=== PATIENT | female | born 1990 | race Caucasian/White ===

== ENCOUNTER 2019-12-25 16:53 | Emergency (ER) | payer BC, MEDICAID ==
[~2019-12-25] VITALS: Ht 154.9 cm; Wt 46.5 kg
--- NOTE | 2019-12-25 18:05 | NUR ---
HAZ TECH: PT WALKED BACK FROM LOBBY TO ROOM AT THIS TIME.
[2019-12-25] MEDS ORDERED: ONDANSETRON 2MG/ML, 2ML IVPush ONE (19:00)
[2019-12-25] MEDS ORDERED: SODIUM CHLORIDE 0.9% 1,000ML IVBOLUS ONE (19:00)
[2019-12-25] MEDS ORDERED: MORPHINE SULFATE 4 MG/ML, 1ML IVPush PRN (19:00)
[2019-12-25 19:06] VITALS: BP 103/65
[2019-12-25 19:12] LABS: BASOPHILS # (AUTO) 0.03 x10^3/uL (0-0.1); BASOPHILS % (AUTO) 0 % (0-1); EOSINOPHILS # (AUTO) 0.11 x10^3/uL (0-0.4); EOSINOPHILS % (AUTO) 1 % (1-7); LYMPHOCYTES # (AUTO) 2.46 x10^3/uL (1-3.4); LYMPHOCYTES % (AUTO) 29 % (22-44); MD NO; MEAN CORPUSCULAR HEMOGLOBIN 27.2 pg (27.0-34.8); MEAN CORPUSCULAR HGB CONC 32.4 g/dL (32.4-35.8); MEAN CORPUSCULAR VOLUME 84.1 fL (80-100); MEAN PLATELET VOLUME 7.4 fL (7.4-10.4); MONOCYTES # (AUTO) 0.72 x10^3/uL (0.2-0.8); MONOCYTES % (AUTO) 8 % (2-9); NEUTROPHILS # (AUTO) 5.17 x10^3/uL (1.8-6.8); NEUTROPHILS % (AUTO) 61 % (42-75); PLATELET COUNT 432 x10^3/uL (130-400); RED BLOOD COUNT 4.47 x10^6/uL (3.82-5.3); RED CELL DISTRIBUTION WIDTH 15.7 % (9.6-15.2)
[2019-12-25 19:25] LABS: ANION GAP 6 mmol/L (5-15); CALCIUM 8.9 mg/dL (8.5-10.1); CHLORIDE 107 mmol/L (98-107)
[2019-12-25] MEDS ORDERED: ONDANSETRON 2MG/ML, 2ML ONE (19:38)
[2019-12-25] MEDS ORDERED: MORPHINE SULFATE 4 MG/ML, 1ML ONE (19:39)
--- NOTE | 2019-12-25 19:56 | NUR ---
PT TO IMAGING AT THIS TIME.
[2019-12-25 20:09] LABS: WET PREP WBCS MODERATE (FEW)
[2019-12-25 20:14] LABS: CLUE CELLS PRESENT (NONE SEEN)
[2019-12-25 20:55] LABS: MICROSCOPIC NOT IND
== END 2019-12-25 21:09 | disposition home or self-care (01) ==
LOC: ED 21:06
DX: N76.0 Acute vaginitis (principal); R10.32 Left lower quadrant pain; R11.0 Nausea
CPT/HCPCS: 36415; 76830; 80048; 81003; 82040; 84703; 85025; 87210; 87491; 87591; 87808; 96361; 96374; 96375; 99284; J2270; J2405; J7030

== ENCOUNTER 2019-12-28 10:35 | Emergency (ER) | payer BC, MEDICAID ==
[~2019-12-28] VITALS: Ht 152.4 cm; Wt 45.8 kg
[2019-12-28 10:39] VITALS: BP 113/73
[2019-12-28] MEDS ORDERED: AZITHROMYCIN 500 MG TABLET PO ONE (11:00)
[2019-12-28] MEDS ORDERED: CEFTRIAXONE 250 MG IM ONE (11:00)
[2019-12-28] MEDS ORDERED: LIDOCAINE-MPF 1%, 2ML ONE (11:09)
[2019-12-28] MEDS ORDERED: AZITHROMYCIN 500 MG TABLET ONE (11:09)
[2019-12-28] MEDS ORDERED: CEFTRIAXONE 250 MG ONE (11:09)
--- NOTE | 2019-12-28 11:31 | NUR ---
pt medicated per emar, tolerated well. pt given dc instructions with education regarding abstinence and partner notification d/t dx sti. pt is a&o, resps even and unlabored, nadn. pt given dc instructions, ambulatory to dc desk with steady gait. all questions answered.
== END 2019-12-28 11:32 | disposition home or self-care (01) ==
LOC: ED 10:45
DX: N34.2 Other urethritis (principal); N89.8 Other specified noninflammatory disorders of vagina
CPT/HCPCS: 96372; 99283; J0696